=== PATIENT | male | born 1985 | race Caucasian/White ===

== ENCOUNTER 2016-04-23 21:46 | Inpatient (IN) | payer OTHER ==
[~2016-04-23] VITALS: Ht 177.8 cm; Wt 120.8 kg
[2016-04-23 22:16] LABS: EOSINOPHIL (%) 2.9 % (0-5); EOSINOPHIL COUNT 0.3 K/uL (0-0.3); HEMATOCRIT 40.4 % (38.0-50.0); IMMATURE GRANULOCYTE (%) 1.1 % (0.0-0.7); IMMATURE GRANULOCYTE COUNT 1.1 K/uL; LYMPHOCYTE COUNT 2.7 K/uL (1.0-2.8); MCHC 35.4 G/DL (30.0-36.0); MCV 79.2 FL (86-99); MEAN PLAT.VOLUME 8.7 uM^3 (9.0-12.4); MONOCYTE (%) 7.2 % (3-12); MONOCYTE COUNT 0.7 K/uL (0-0.8); NEUTROPHIL (%) 62.1 % (45-76); NEUTROPHIL COUNT 6.3 K/uL (1.8-6.4); PLATELET COUNT 260 K/uL (156-360); RBC DIS.WIDTH-CV 13.8 % (11.8-14.6); RBC DIS.WIDTH-SD 38.3 % (39-53); WHITE BLOOD COUNT 10.1 K/uL (4.1-10.2)
[2016-04-23 22:34] LABS: CHLORIDE 102 mEq/L (99-109); POTASSIUM 4.2 mEq/L (3.7-5.4); SODIUM 137 mEq/L (136-147)
[2016-04-23 22:36] LABS: GLUCOSE 83 mg/dL (70-99); TROP-I INTERPRETATION NEGATIVE; TROPONIN-I < 0.01 ng/mL (0.0-0.30)
[2016-04-23 22:37] LABS: ANION GAP 10 MEQ/L (2-14)
[2016-04-23 22:38] LABS: TOTAL BILIRUBIN 0.4 mg/dL (0.0-1.0)
[2016-04-23 22:39] LABS: SERUM ETHYL ALCOHOL < 10 mg/dL
[2016-04-23 22:40] LABS: ALKALINE PHOSPHATASE 81 IU/L (3-129); GFR ESTIMATE (CALCULATED) > 59 mL/min/
[2016-04-23 22:42] LABS: UREA NITROGEN (BUN) 20 mg/dL (9-23)
[2016-04-23 22:43] LABS: SALICYLATE < 5.0 MG/DL (15-30)
[2016-04-23 22:44] LABS: CREATINE KINASE 459 IU/L (1-294); LIPASE 29 U/L (1.0-51.0); TOTAL CK 459 IU/L (1-294)
[2016-04-23 22:50] LABS: CK-MB 5.9 ng/mL (0.0-4.9)
[2016-04-23 23:19] LABS: ADD MIUA? NO; BILIRUBIN NEGATIVE; BLOOD NEGATIVE; COLOR YELLOW ((YELLOW)); GLUCOSE (STRIP) NEGATIVE; KETONES NEGATIVE; LEUKOCYTES NEGATIVE; NITRITE NEGATIVE; PH, URINE 7.5 (5-8); PROTEIN (STRIP) NEGATIVE; SPECIFIC GRAVITY 1.012 (1.000-1.030); UCUL ADDED? NO; UROBILINOGEN 0.2 MG/DL (0.2-1.0)
[2016-04-23 23:27] LABS: THC CANNABINOIDS NEGATIVE (50 ng/mL)
[2016-04-23 23:28] LABS: AMPHETAMINE PRESUMPTIVE POSITIVE (500 ng/mL); BARBITURATES NEGATIVE (200 ng/mL); BENZODIAZEPINES NEGATIVE (150 ng/mL); COCAINE NEGATIVE (150 ng/mL); INTERNAL CONTROLS VALID? YES; METHADONE NEGATIVE (200 ng/mL); METHAMPHETAMINE NEGATIVE (500 ng/mL); OPIATES (MORPHINE) NEGATIVE (100 ng/mL); OXYCODONE NEGATIVE (100 ng/mL); PHENCYCLIDINE NEGATIVE (25 ng/mL); PROPOXYPHENE NEGATIVE (300 ng/mL); TRICYCLIC ANTIDEPRESSANTS PRESUMPTIVE POSITIVE (300 ng/mL)
[2016-04-23 23:29] LABS: ADD MEDTOX COMMENT Y
[2016-04-24] MEDS ORDERED: VYVANSE70 MG PO (02:48)
[2016-04-24] MEDS ORDERED: ADDERALL XR 3030 MG PO (02:48)
[2016-04-24] MEDS ORDERED: ZUBSOLV 8.6-2.1 EACH SL (02:49)
[2016-04-24] MEDS ORDERED: ZUBSOLV 11.4-21 EACH SL (02:49)
[2016-04-24] MEDS ORDERED: TRAZODONE HCL150 MG PO (02:50)
[2016-04-24] MEDS ORDERED: SEROQUEL200 MG PO (02:50)
[2016-04-24] MEDS ORDERED: REMERON30 M2 PO (02:50)
[2016-04-24] MEDS ORDERED: OMEPRAZOLE20 MG PO (02:51)
[2016-04-24] MEDS ORDERED: EFFEXOR XR150 MG PO (02:51)
[2016-04-24] MEDS ORDERED: GABAPENTIN800 MG PO (02:52)
[2016-04-24 07:43] VITALS: BP 163/83
[2016-04-24 13:37] VITALS: BP 148/67
[2016-04-24 15:35] VITALS: BP 134/75
[2016-04-25 09:18] VITALS: BP 140/63
[2016-04-25 16:20] VITALS: BP 144/67
[2016-04-26 08:01] VITALS: BP 130/58
== END 2016-04-26 11:07 | disposition other institution (70) | DRG 885 ==
LOC: EME 21:46 → EDBD 21:46 → EME 21:47 → 1WEST 04-24 02:11 → EDOF 04-24 02:11 → 1WEST 04-24 04:47
PROVIDERS: Emergency Medicine
DX: F33.2 Major depressive disorder, recurrent severe without psychotic features (principal); R45.851 Suicidal ideations; F11.20 Opioid dependence, uncomplicated; I10 Essential (primary) hypertension; E66.3 Overweight; F41.9 Anxiety disorder, unspecified; T43.622A Poisoning by amphetamines, intentional self-harm, initial encounter; T50.992A Poisoning by other drugs, medicaments and biological substances, intentional self-harm, initial encounter; F17.200 Nicotine dependence, unspecified, uncomplicated
CPT/HCPCS: 80053; 81003; 82550; 82553; 83690; 84484; 84999; 85025; 90839; 93005; 97165 GO; 99281; 99285; G0480; J0572; J0574; J2060; J7030; Q0177

== ENCOUNTER 2016-08-26 14:41 | Emergency (ER) | payer OTHER ==
[~2016-08-26] VITALS: Ht 177.8 cm; Wt 113.0 kg
[~2016-08-26 14:41] MED LIST: ADDERALL XR 3030 MG PO; EFFEXOR XR150 MG PO; GABAPENTIN800 MG PO; OMEPRAZOLE20 MG PO; REMERON30 M2 PO; SEROQUEL200 MG PO; TRAZODONE HCL150 MG PO; VYVANSE70 MG PO; ZUBSOLV 11.4-21 EACH SL; ZUBSOLV 8.6-2.1 EACH SL
[2016-08-26 15:12] LABS: HEMATOCRIT 43.2 % (38.0-50.0); MCHC 33.8 G/DL (30.0-36.0); MEAN PLAT.VOLUME 9.2 uM^3 (9.0-12.4); PLATELET COUNT 264 K/uL (156-360); RBC DIS.WIDTH-CV 13.4 % (11.8-14.6); RBC DIS.WIDTH-SD 38.3 % (39-53); WHITE BLOOD COUNT 10.3 K/uL (4.1-10.2)
[2016-08-26 15:21] LABS: CHLORIDE 108 mEq/L (99-109); POTASSIUM 3.5 mEq/L (3.7-5.4); SODIUM 139 mEq/L (136-147)
[2016-08-26 15:22] LABS: GLUCOSE 100 mg/dL (70-99)
[2016-08-26 15:24] LABS: ANION GAP 10 MEQ/L (2-14)
[2016-08-26 15:26] LABS: GFR ESTIMATE (CALCULATED) > 59 mL/min/
[2016-08-26 15:27] LABS: UREA NITROGEN (BUN) 14 mg/dL (9-23)
[2016-08-26 15:29] LABS: CREATINE KINASE 126 IU/L (1-294)
[2016-08-26 15:33] LABS: ADD MIUA? NO; BILIRUBIN NEGATIVE; BLOOD NEGATIVE; COLOR STRAW ((YELLOW)); GLUCOSE (STRIP) NEGATIVE; KETONES NEGATIVE; LEUKOCYTES NEGATIVE; NITRITE NEGATIVE; PROTEIN (STRIP) NEGATIVE; SPECIFIC GRAVITY 1.005 (1.000-1.030); UROBILINOGEN 0.2 MG/DL (0.2-1.0)
[2016-08-26 15:42] LABS: ADD MEDTOX COMMENT Y; AMPHETAMINE NEGATIVE (500 ng/mL); BARBITURATES NEGATIVE (200 ng/mL); BENZODIAZEPINES NEGATIVE (150 ng/mL); COCAINE NEGATIVE (150 ng/mL); INTERNAL CONTROLS VALID? YES; METHADONE NEGATIVE (200 ng/mL); METHAMPHETAMINE NEGATIVE (500 ng/mL); OPIATES (MORPHINE) PRESUMPTIVE POSITIVE (100 ng/mL); OXYCODONE NEGATIVE (100 ng/mL); PHENCYCLIDINE NEGATIVE (25 ng/mL); PROPOXYPHENE NEGATIVE (300 ng/mL); THC CANNABINOIDS PRESUMPTIVE POSITIVE (50 ng/mL); TRICYCLIC ANTIDEPRESSANTS NEGATIVE (300 ng/mL)
[2016-08-26 16:07] VITALS: BP 129/71
[2016-08-26 16:40] LABS: OPIATES QUANTITATIVE VALUE 0 NG/ML
== END 2016-08-26 17:56 | disposition home or self-care (01) ==
LOC: EME 14:41
PROVIDERS: Emergency Medicine
DX: F12.10 Cannabis abuse, uncomplicated (principal); F41.1 Generalized anxiety disorder; R00.0 Tachycardia, unspecified; I10 Essential (primary) hypertension; F17.200 Nicotine dependence, unspecified, uncomplicated
CPT/HCPCS: 80048; 81003; 82550; 84999; 85027; 99281; 99285; J0171; J1100; J7030; S0028

== ENCOUNTER 2017-02-23 14:54 | Emergency (ER) | payer OTHER ==
[~2017-02-23] VITALS: Ht 172.7 cm; Wt 99.5 kg
[2017-02-23 15:45] LABS: HEMATOCRIT 46.8 % (38.0-50.0); MCH 27.8 PG (29.0-34.0); MCHC 34.4 G/DL (30.0-36.0); MCV 80.8 FL (86-99); MEAN PLAT.VOLUME 9.3 uM^3 (9.0-12.4); PLATELET COUNT 370 K/uL (156-360); RBC DIS.WIDTH-CV 13.2 % (11.8-14.6); RBC DIS.WIDTH-SD 38.1 % (39-53); RED BLOOD COUNT 5.79 M/uL (4.00-5.50); WHITE BLOOD COUNT 14.2 K/uL (4.1-10.2)
[2017-02-23 15:54] LABS: CHLORIDE 108 mEq/L (99-109); POTASSIUM 3.8 mEq/L (3.7-5.4); SODIUM 137 mEq/L (136-147)
[2017-02-23 15:56] LABS: GLUCOSE 103 mg/dL (70-99)
[2017-02-23 15:57] LABS: ANION GAP 10 MEQ/L (2-14)
[2017-02-23 15:58] LABS: TOTAL BILIRUBIN 0.4 mg/dL (0.0-1.0)
[2017-02-23 15:59] LABS: SERUM ETHYL ALCOHOL < 10 mg/dL
[2017-02-23 16:00] LABS: ALKALINE PHOSPHATASE 92 IU/L (3-129); GFR ESTIMATE (CALCULATED) > 59 mL/min/
[2017-02-23 16:01] LABS: UREA NITROGEN (BUN) 9 mg/dL (9-23)
[2017-02-23 16:11] LABS: ADD MIUA? YES; BILIRUBIN NEGATIVE; BLOOD NEGATIVE; COLOR AMBER ((YELLOW)); GLUCOSE (STRIP) NEGATIVE; KETONES 5; LEUKOCYTES TRACE; NITRITE NEGATIVE; PROTEIN (STRIP) 30; SPECIFIC GRAVITY 1.026 (1.000-1.030)
[2017-02-23 16:31] LABS: ADD MEDTOX COMMENT Y; AMPHETAMINE NEGATIVE (500 ng/mL); BARBITURATES NEGATIVE (200 ng/mL); BENZODIAZEPINES NEGATIVE (150 ng/mL); COCAINE NEGATIVE (150 ng/mL); INTERNAL CONTROLS VALID? YES; METHADONE PRESUMPTIVE POSITIVE (200 ng/mL); METHAMPHETAMINE NEGATIVE (500 ng/mL); OPIATES (MORPHINE) NEGATIVE (100 ng/mL); OXYCODONE NEGATIVE (100 ng/mL); PHENCYCLIDINE NEGATIVE (25 ng/mL); PROPOXYPHENE NEGATIVE (300 ng/mL); THC CANNABINOIDS PRESUMPTIVE POSITIVE (50 ng/mL); TRICYCLIC ANTIDEPRESSANTS PRESUMPTIVE POSITIVE (300 ng/mL)
[2017-02-23 16:39] LABS: BACTERIA RARE /HPF; EPITHELIAL CELLS NONE SEEN /HPF; MUCUS 3+ /LPF; RED BLOOD CELLS NONE SEEN /HPF (0-5); UCUL ADDED? NO; WHITE BLOOD CELLS 0-5 /HPF (0-5)
[2017-02-23 16:40] LABS: CASTS NONE SEEN /LPF; CRYSTALS PRESENT
[2017-02-23 16:41] LABS: CALCIUM OXALATE CRYSTALS 1+ /HPF
[2017-02-23 17:10] VITALS: BP 142/126
== END 2017-02-23 17:10 | disposition home or self-care (01) ==
LOC: EME 14:54
PROVIDERS: Emergency Medicine
DX: F33.1 Major depressive disorder, recurrent, moderate (principal); F11.20 Opioid dependence, uncomplicated; F12.10 Cannabis abuse, uncomplicated; Z59.0 Homelessness; F17.200 Nicotine dependence, unspecified, uncomplicated; I10 Essential (primary) hypertension
CPT/HCPCS: 80053; 81003; 84999; 85027; 90839; 99281; 99285; G0480

== ENCOUNTER 2017-04-08 04:33 | Emergency (ER) | payer OTHER ==
[~2017-04-08] VITALS: Ht 172.7 cm; Wt 105.6 kg
[2017-04-08 06:06] LABS: AMPHETAMINE PRESUMPTIVE POSITIVE (500 ng/mL); BENZODIAZEPINES PRESUMPTIVE POSITIVE (150 ng/mL); COCAINE NEGATIVE (150 ng/mL); METHAMPHETAMINE NEGATIVE (500 ng/mL); OPIATES (MORPHINE) NEGATIVE (100 ng/mL); PHENCYCLIDINE NEGATIVE (25 ng/mL); THC CANNABINOIDS NEGATIVE (50 ng/mL); TRICYCLIC ANTIDEPRESSANTS NEGATIVE (300 ng/mL)
[2017-04-08 06:07] LABS: BARBITURATES NEGATIVE (200 ng/mL); BUPRENORPHINE NEGATIVE (10 ng/mL); METHADONE PRESUMPTIVE POSITIVE (200 ng/mL); OXYCODONE NEGATIVE (100 ng/mL); PROPOXYPHENE NEGATIVE (300 ng/mL)
[2017-04-08 06:27] VITALS: BP 132/73
[2017-04-08 07:52] LABS: BENZODIAZEPINES, URINE SCREEN POSITIVE (200 ng/mL)
== END 2017-04-08 06:37 ==
LOC: EME 04:33
PROVIDERS: Physician Assistant
DX: S20.219A Contusion of unspecified front wall of thorax, initial encounter (principal); Y35.893A Legal intervention involving other specified means, suspect injured, initial encounter
CPT/HCPCS: 71045; 84999; 99281; 99283; G0480

== ENCOUNTER 2017-06-22 14:28 | Emergency (ER) | payer OTHER ==
[~2017-06-22] VITALS: Ht 172.7 cm; Wt 102.2 kg
[2017-06-22 15:43] LABS: HEMATOCRIT 40.6 % (38.0-50.0); HEMOGLOBIN 13.7 G/DL (12.5-16.6); MCH 27.8 PG (29.0-34.0); MCHC 33.7 G/DL (30.0-36.0); MCV 82.5 FL (86-99); PLATELET COUNT 240 K/uL (156-360); RBC DIS.WIDTH-CV 13.3 % (11.8-14.6); RBC DIS.WIDTH-SD 39.8 % (39-53); RED BLOOD COUNT 4.92 M/uL (4.00-5.50); WHITE BLOOD COUNT 8.3 K/uL (4.1-10.2)
[2017-06-22 15:53] LABS: CHLORIDE 105 mEq/L (99-109); POTASSIUM 4.3 mEq/L (3.7-5.4); SODIUM 140 mEq/L (136-147)
[2017-06-22 15:54] LABS: GLUCOSE 85 mg/dL (70-99)
[2017-06-22 15:58] LABS: CREATININE 0.9 mg/dL (0.6-1.3); GFR ESTIMATE (CALCULATED) > 59 mL/min/ (58.99-99999); SERUM ETHYL ALCOHOL 37 mg/dL
[2017-06-22 16:00] LABS: UREA NITROGEN (BUN) 11 mg/dL (9-23)
[2017-06-22 16:02] LABS: ACETAMINOPHEN (TYLENOL) < 10 mcg/mL (10-30); SALICYLATE < 5.0 MG/DL (15-30)
[2017-06-22 16:13] LABS: AMPHETAMINE NEGATIVE (500 ng/mL); COCAINE NEGATIVE (150 ng/mL); METHAMPHETAMINE NEGATIVE (500 ng/mL); OPIATES (MORPHINE) NEGATIVE (100 ng/mL); PHENCYCLIDINE NEGATIVE (25 ng/mL); THC CANNABINOIDS NEGATIVE (50 ng/mL)
[2017-06-22 16:14] LABS: BARBITURATES NEGATIVE (200 ng/mL); BENZODIAZEPINES PRESUMPTIVE POSITIVE (150 ng/mL); BUPRENORPHINE NEGATIVE (10 ng/mL); METHADONE PRESUMPTIVE POSITIVE (200 ng/mL); OXYCODONE NEGATIVE (100 ng/mL); PROPOXYPHENE NEGATIVE (300 ng/mL); TRICYCLIC ANTIDEPRESSANTS NEGATIVE (300 ng/mL)
[2017-06-22 17:12] VITALS: BP 121/76
[2017-06-22 18:13] LABS: BENZODIAZEPINES, URINE SCREEN POSITIVE (200 ng/mL)
== END 2017-06-22 17:49 | disposition home or self-care (01) ==
LOC: EME 14:28
PROVIDERS: Emergency Medicine
DX: F33.1 Major depressive disorder, recurrent, moderate (principal); F10.129 Alcohol abuse with intoxication, unspecified; F11.20 Opioid dependence, uncomplicated; Y90.1 Blood alcohol level of 20-39 mg/100 ml; I10 Essential (primary) hypertension; F17.200 Nicotine dependence, unspecified, uncomplicated
CPT/HCPCS: 80048; 84999; 85027; 90839; 99281; 99285; G0480

== ENCOUNTER 2017-09-22 12:15 | Emergency (ER) | payer OTHER ==
[~2017-09-22] VITALS: Ht 177.8 cm; Wt 117.3 kg
[2017-09-22] MEDS ORDERED: MOTRIN800 MG PO (14:28)
[2017-09-22 15:10] VITALS: BP 110/64
== END 2017-09-22 15:12 | disposition home or self-care (01) ==
LOC: EME 12:15
DX: S83.411A Sprain of medial collateral ligament of right knee, initial encounter (principal); X50.9XXA Other and unspecified overexertion or strenuous movements or postures, initial encounter; Y93.89 Activity, other specified; F17.200 Nicotine dependence, unspecified, uncomplicated
CPT/HCPCS: 73564; 99281; 99284